=== PATIENT | female | born 1950 | race Caucasian/White ===

== ENCOUNTER 2018-10-27 10:25 | Inpatient (IN) | payer SELFPAY ==
[2018-10-27] VITALS (8 sets, daily range): BP systolic 106–133; BP diastolic 70–90; PULSE 80–107; RESP 14–18; TEMP 36–36.7; O2SAT 97–100; BMI 24.9; BMI 23.3; BMI 22.3
--- NOTE | 2018-10-27 10:34 | ED.VIS.GEN ---
History of Present Illness Chief Complaint: Fall Informant: Patient Onset: Today Context: Sudden Onset Timing: Continuous Current Severity: Moderate Maximum Severity: Severe Narrative: The patient presents to the emergency department by squad. Patient had a mechanical fall. She slipped on wet grass today. She landed on her left hip. She did not strike her head. She denies loss of consciousness. The patient has had a prior left hip replacement. Squad did note shortening and rotation. She is complaining of a lot of pain into her buttocks. She was unable to stand and bear weight. She basically had to drag herself up to the deck with her arms. She did not strike her head. She denies loss of consciousness. She is otherwise been in her normal state of health. Prior similar symptoms: No Recent Illness/Hospitalization: No Past Medical History - Allergies and Home Meds Allergies/Adverse Reactions: Allergies No Known Allergies Allergy (Verified 10/27/18 10:29) Prior records reviewed: Yes Past Medical History: None Surgical History: arthscropcy, hip Lives: With Family Smoking Status: Never smoker Alcohol: None Drugs: None Review of Systems General: Denies: Chills, Fever, Sweats Eyes: Denies: Visual changes - bilaterally, Diplopia ENT: Denies: Rhinorrhea, Sore throat Cardiovascular: Denies: Chest pain, Palpitations Respiratory: Denies: Dyspnea, Cough, Dyspnea on exertion Gastrointestinal: Denies: Abdominal pain, Nausea, Vomiting, Diarrhea, Melena, Hematochezia Genitourinary: Denies: Dysuria, Hematuria, Frequency Musculoskeletal: Denies: Back pain, Extremity Pain Skin: Denies: Rash, Wounds Neurological: Denies: Headache, Weakness, Numbness Physical Exam Vital Signs/Narrative: Vital Signs Temp Pulse Resp BP Pulse Ox 10/27/18 10:26 98.0 F 101 H 18 118/70 100 Inital Vital Signs reviewed: Yes General: Well nourished, Well developed, No Acute Distress Head: Normocephalic, Atraumatic Eyes: Perrl, EOMI ENT: Moist mucous membranes, No rhinorrhea Neck: Supple, Nontender Cardiovascular: Regular rate, Regular rhythm, No murmurs Respiratory: No distress, CTA bilaterally, Chest nontender Abdomen: Soft, Nontender, Nondistended, Normal bowel sounds Back: Nontender, Normal Inspection Extremities: Nontender, No edema Skin: Normal color, No rash Neurological: Alert, Oriented x3, Cranial nerves II-XII grossly intact, Normal Strength, Normal Sensation Psychological: Normal affect, Normal Mood Diagnostic/Tx/Re-eval Chest X-Ray - ED: 1 View, Normal, Heart, Lungs Clinical Impression(s) from Imaging Studies Hip X-Ray 10/27/18 11:00 IMPRESSION: Nondisplaced transverse fracture at the base of the left femoral neck with mild cephalic migration of the distal fracture fragment. Electronically Signed: Devon Jac, at 11:15 EDT , Service support , Chest X-Ray 10/27/18 11:10 IMPRESSION: Volume loss with pleural parenchymal changes at the right lung base. The patient has a history of recent right lung surgery. This may represent postoperative changes. Electronically Signed: Devon Nathan, at 12:24 EDT , Service support , Abnormal Lab Results 10/27/18 10/27/18 10:30 10:30 WBC 4.6 RBC 4.10 L Hgb 12.1 Hct 37.9 MCV 92.4 MCH 29.5 MCHC 31.9 L RDW Std Deviation 51.1 H RDW Coeff of Nan 15.0 H Plt Count 230 MPV 9.4 Immature Gran % (Auto) 0.600 Neut % (Auto) 71.3 H Lymph % (Auto) 14.9 L [place] % (Auto) 11.3 H Eos % (Auto) 1.7 Baso % (Auto) 0.2 Absolute Neuts (auto) 3.3 Absolute Lymphs (auto) 0.69 L Nucleated RBC % 0 Sodium 139 Potassium 3.9 Chloride 108 H Carbon Dioxide 23.0 Anion Gap 8 BUN 17 Creatinine 0.84 Estim Creat Clear Calc 47.70 Est GFR (MDRD) Af Amer 87 Est GFR (MDRD) Non-Af 72 BUN/Creatinine Ratio 20.3 H Glucose 145 H Calcium 9.1 Total Bilirubin 0.30 AST 26 ALT 23 Alkaline Phosphatase 144 H Total Protein 7.9 Albumin 3.1 L Globulin 4.8 H Albumin/Globulin Ratio 0.6 L - Rhythm Strip Rhythm Strip: Sinus Rhythm Rate: 70 Ectopy: None - EKG Follow-up EKG Interpretation: Sinus Rhythm, No Acute Injury Pattern Prior: No Prior - Medical Decision Making The the patient presents to the emergency department after a fall. She is neurologically intact in her lower extremity. There is no open skin areas. She was given analgesics with improvement. X-ray does confirm a basicervical fracture. The patient discussed with orthopedics. She will be taken for operative reduction and will be admitted to the hospitalist. 1. Left femoral neck fracture
[2018-10-27] MEDS: Morphine 4 MG/ML Syringe IV (10:35)
[2018-10-27] MEDS: Ondansetron 4 MG/2 ML Vial IV (10:36)
--- NOTE | 2018-10-27 11:00 | RAD_ITS ---
STUDY: X-RAY - PELVIS AND LEFT HIP REASON FOR EXAM: Female, 68 years old. Pain following a fall. TECHNIQUE: 3 views of the pelvis and hip. COMPARISON: None. FINDINGS: There is evidence of a nondisplaced transverse fracture at the base of the left femoral neck. Mild cephalic migration of the distal fracture fragment. Status post right total hip replacement. RAD/Hip Min 2 Views (Portable) IMPRESSION: Nondisplaced transverse fracture at the base of the left femoral neck with mild cephalic migration of the distal fracture fragment. Electronically Signed: Devon Nathan, at 11:15 EDT , Service support ,
--- NOTE | 2018-10-27 11:05 | EKG12_ITS ---
Test Reason : FALL Blood Pressure : / mmHG Vent. Rate : 088 BPM Atrial Rate : 088 BPM P-R Int : 156 ms QRS Dur : 082 ms QT Int : 368 ms P-R-T Axes : 060 034 041 degrees QTc Int : 445 ms Normal sinus rhythm Normal ECG Confirmed by LEEANNA STEEL ([id number]), pictures editor JJ PAVON ([id number]) on 10/29/2018 1:57:27 PM Referred By: Adam Veliz Confirmed By:LEEANNA STEEL
--- NOTE | 2018-10-27 11:07 | NURSING ---
NO OLD EKGS
--- NOTE | 2018-10-27 11:08 | NURSING ---
DR TUBBS PAGED
[2018-10-27 11:10] LABS: Absolute Lymphocyte Count 0.69 X10^3/uL (0.83-4.51); Absolute Neutrophil Count 3.3 X10^3/uL (2.0-7.7); Basophil# 0.01 X10^3/uL; Basophil% 0.2 % (0-1); Eosinophil# 0.08 X10^3/uL; Eosinophils% 1.7 % (0-5); Hematocrit 37.9 % (37-47); Hemoglobin 12.1 g/dL (12.0-15.0); Lymphocyte # 0.69 X10^3/ul (4.0); Lymphocyte % 14.9 % (19-41); Mean Corp Hgb Conc 31.9 g/dL (32-36); Mean Corpuscular Hgb 29.5 pg (27.0-32.0); Mean Corpuscular Volume 92.4 fL (81-99); Mean Platelet Vol. 9.4 fl (6.2-12.0); Monocyte# 0.52 X10^3/uL; Monocyte% 11.3 % (0-10); NRBC Flagged by Analyzer 0 % (0-5); Neutrophil # 3.29 X10^3/uL (2.7-7.7); Neutrophil % 71.3 % (47-70); Platelet Count 230 K/mm3 (150-450); RBC Distribution Width SD 51.1 fl (35.1-43.9); White Blood Count 4.6 K/mm3 (4.4-11.0)
--- NOTE | 2018-10-27 11:10 | RAD_ITS ---
STUDY: X-RAY CHEST REASON FOR EXAM: Female, 68 years old. History of fall. Cough. History of recent right lung surgery due to carcinoma. TECHNIQUE: Single AP portable view of the chest. COMPARISON: None. FINDINGS: Loss of volume in the right hemithorax. Pleural parenchymal changes at the right lung base most likely postoperative in nature. The left lung is clear. Normal size heart. Normal mediastinum and elias. Normal visualized pulmonary arteries. Normal visualized aortic arch and descending thoracic aorta. There are diffuse degenerative changes of the visualized thoracic spine. Calcific tendinitis in the left shoulder. There is no demonstrated abnormality of the visualized soft tissue structures of the upper abdomen. RAD/Chest 1 View (Portable) IMPRESSION: Volume loss with pleural parenchymal changes at the right lung base. The patient has a history of recent right lung surgery. This may represent postoperative changes. Electronically Signed: Devon Nathan, at 12:24 EDT , Service support ,
[2018-10-27 11:24] LABS: ALB/GLOB Ratio 0.6 RATIO (0.9-2.4); AST(SGOT) 26 U/L (15-37); Alanine Aminotransfer ALT/SGPT 23 U/L (13-56); Albumin, Serum 3.1 g/dL (3.2-5.0); Alkaline Phosphatase 144 U/L (45-117); Anion Gap 8 (5-15); BUN 17 mg/dL (7-18); BUN/Creat Ratio 20.3 RATIO (10-20); Calcium,Total 9.1 mg/dL (8.5-10.1); Chloride 108 mmol/L (98-107); Creatinine, Serum 0.84 mg/dL (0.55-1.02); EST Glomerular Filtration Rate 72 mL/min (>60); Est Glom Filt Rate - Afr Amer 87 mL/min (>60); Globulin 4.8 g/dL (2.2-4.2); Glucose 145 mg/dL (74-106); Potassium 3.9 mmol/L (3.5-5.1); Protein, Total 7.9 g/dL (6.4-8.2); Sodium Level 139 mmol/L (136-145)
--- NOTE | 2018-10-27 12:00 | NURSING ---
MED SURG HIP FX PAINTSIL
--- NOTE | 2018-10-27 12:01 | PCM.HP.STD ---
Problem List (1) Hip fracture, left Status: Acute History of Present Illness Date of Admission: 10/27/18 Chief Complaint: Fall, left hip pain - today The patient is a 68 year old F with PMHx of lung CA s/p right lobectomy in June 2018, s/p chemotherapy, history of endometrial CA status post DEBRA and BSO 7 years ago who comes in after a mechanical fall with hip pain. Patient is visiting the son and tripped over the dog leash in his son's backyard. She fell and has subsequently left hip pain. She denied any dizziness or palpitation or feeling unwell prior to this event. She is unable to move the left hip. The EMS was called. She had pain when she moves. Denied any chest pain or orthopnea or PND or shortness of breath or fever or chills or diarrhea. Vitals in the ED show temperature 98F, heart rate 101, blood pressure 118/70, respiratory rate 18, SPO2 100% on room air. Her WBC count is 4.6, hemoglobin 12.1, platelet count 230, CMP was unremarkable. Chest x-ray showed right hemithoracic volume loss with pleural parenchyma changes at the lung base from history of surgery. X-ray of the hip showed nondisplaced transverse fracture at the base of the left femoral neck with mild cephalic migration of the distal fracture fragment. EKG shows NSR, no acute ST-T changes. 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: endometrial cancer Lives: With Family Smoking Status: Former smoker Alcohol: None Drugs: None Review of Systems Constitutional: Denies: Anorexia, Chills, Fever, Weakness, Weight Change, Fatigue Eyes: Denies: Blurred vision, Pain, Redness, Vision Change HEENT: Denies: Head Aches, Hearing Changes, Nasal bleeding, Sinus Congestion, Sinus Drainage Cardiovascular: Denies: Chest Pain, Claudication, Orthopnea, Palpitations Respiratory: Denies: Cough, Hemoptysis, Shortness of breath at rest, Shortness of breath upon exertion, Sputum production Gastrointestinal: Denies: Abdominal Pain, Hematemesis, Hematochezia, Nausea, Vomiting Genitourinary: Denies: Dysuria, Frequency, Incontinence Musculoskeletal: Reports: Joint Tenderness, Muscle pain. Denies: Joint Pain, Joint stiffness Skin: Denies: Dryness, Lesions, Pruritis, Rash, Wounds Neurological: Denies: Difficulty swallowing, Focal weakness, Numbness, Tingling Psychiatric: Denies: Anxiety, Depression, Homicidal Ideations, Suicidal Ideations Hematologic/ Lymphatic: Denies: Easy Bruising, Easy Bleeding VTE Information - Inpt Only VTE Present on Admission: No VTE Pharm Prophylaxis ordered?: Yes Patient Problems: Active and Suspected Problems Hip fracture, left (Acute) - Physical Exam General: Alert, Oriented x3, Cooperative, No apparent distress HEENT: Atraumatic, PERRLA, EOMI, Normocephalic Oral: Moist Mucosa Neck: Supple Lungs: Clear to auscultation, Normal air movement Cardiovascular: Regular rate, Regular Rhythm, Normal S1, Normal S2, No murmurs Abdomen: Bowel Sounds Present, Soft, Non Tender, Non-Distended, No Hepato-splenomegaly Extremities: No edema Skin: No rashes, No breakdown Musculoskeletal: Tenderness - over the left hip with shortening and external rotation of the left leg Lymphatic: No Cervical, Supraclavicular, or Inguinal Adenopathy Neurological: Cranial nerves II-XII grossly intact Psych/Mental Status: Normal Affect, Appropriate Vital Signs Temp Pulse Resp BP Pulse Ox 98.0 F 101 H 18 118/70 100 10/27/18 10:26 10/27/18 10:26 10/27/18 10:26 10/27/18 10:26 10/27/18 10:26 Oxygen Delivery Method Room Air Weight: 59.9 kg Body Mass Index (BMI) 24.9 Laboratory Tests Past 24 Hrs 10/27/18 10/27/18 10:30 10:30 WBC 4.6 RBC 4.10 L Hgb 12.1 Hct 37.9 MCV 92.4 MCH 29.5 MCHC 31.9 L RDW Std Deviation 51.1 H RDW Coeff of Nan 15.0 H Plt Count 230 MPV 9.4 Immature Gran % (Auto) 0.600 Neut % (Auto) 71.3 H Lymph % (Auto) 14.9 L [place] % (Auto) 11.3 H Eos % (Auto) 1.7 Baso % (Auto) 0.2 Absolute Neuts (auto) 3.3 Absolute Lymphs (auto) 0.69 L Nucleated RBC % 0 Sodium 139 Potassium 3.9 Chloride 108 H Carbon Dioxide 23.0 Anion Gap 8 BUN 17 Creatinine 0.84 Estim Creat Clear Calc 47.70 Est GFR (MDRD) Af Amer 87 Est GFR (MDRD) Non-Af 72 BUN/Creatinine Ratio 20.3 H Glucose 145 H Calcium 9.1 Total Bilirubin 0.30 AST 26 ALT 23 Alkaline Phosphatase 144 H Total Protein 7.9 Albumin 3.1 L Globulin 4.8 H Albumin/Globulin Ratio 0.6 L Assessment/Plan All Active Problems Hip fracture, left (Acute) 68 year old female with PMHx of lung CA s/p right lobectomy in June 2018, s/p chemotherapy, history of endometrial CA status post DEBRA/BSO 7 years ago who comes in after a mechanical fall with hip pain. 1. Acute left femoral neck fracture, traumatic secondary to mechanical fall, patient's pain is fairly controlled Stable vitals. No acute current cardiac symptoms. EKG shows normal sinus rhythm, no acute ST-T changes Chest x-ray shows recent lobectomy; not on oxygen Patient is moderate risk for planned procedure for pulmonary reasons on account of recent lobectomy Orthopedic surgery consulted, will follow-up on recommendations, continue on pain control, PT/OT to evaluate 2. H/o Lung CA s/p recent right lobectomy and chemotherapy, will be followed up in the outpatient 3. H/o Endometrial CA s/p hysterectomy and radiotherapy to pelvis, will need 4. DVT PPx- Heparin SC Code Visit Inpatient E&M: 81764 Init Hosp L2
--- NOTE | 2018-10-27 12:18 | NURSING ---
DR SEALS IN ER
--- NOTE | 2018-10-27 12:18 | NURSING ---
PER CHARGE NURSE IN OR, PATIENT IS GOING TO SURGERY IN NEXT HALF HOUR
[2018-10-27] MEDS: 0.9% Normal Saline 1,000 ML 75 ML IV (13:18)
--- NOTE | 2018-10-27 14:00 | HIP_PTH ---
PATIENT: MARK CAMARILLO LOC: MS3 U#:[id number] AGE/SX: 68/F ROOM: MS318 RE10/27/[address]: Dr. Adam Veliz DO : 1950 BED: 1 DIS: 10/29/2018 SPEC #: [id number] RECD: 10/28/18 09:45 STATUS: JEFFERSON RELianna #: [id number] LUIGI: 10/27/18 14:[address]: Adam Veliz DEPT: SURGICAL PATHOLOGY RECD BY: Tamar Robin ENTERED: 10/28/18 11:26 SP TYPE: TOTAL HIP OTHR DR: No Primary Care Phys Tissues: Hip, NOS Procedures: Decalcification bone/plaque Surgery Specimen Level IV HEADER OPERATION: Hemiarthroplasty, hip PRE-OP DIAGNOSIS: Left hip fracture TISSUE SUBMITTED: Left femoral head MICROSCOPIC DIAGNOSIS Left femoral head, hemiarthroplasty: Femoral head and detached pieces of bone with focal area of hemorrhage, clinically left hip fracture. Fragments of fibroadipose tissue, fibroconnective tissue and skeletal muscle tissue. JANNA:camilla 11/02/18 MICROSCOPIC DESCRIPTION Slides are reviewed. GROSS DESCRIPTION Received is one container designated left femoral head. The specimen consists of a femoral head measuring 4.5 x 4.5 x 3 cm. The portion of femoral neck measures 1.5 cm in length. The articular surface is smooth. The resection margin is hemorrhagic. Also present in the container are multiple detached pieces of bone measuring in aggregate 8 x 6 x 2 cm. Also present in the container are multiple pieces of soft tissue measuring in aggregate 3 x 3 x 1 cm. Maintenance Engineer sections are submitted in three cassettes as follows: 1 - soft tissue, 2 - detached pieces of bone, 3 - femoral head; 2 & 3 are submitted after decalcification. / JANNA:camilla 10/28/18 TC:5 CPT: 15627, 96401
--- NOTE | 2018-10-27 15:01 | PCM.CONS.GEN ---
Problem List (1) Hip fracture, left Status: Acute Qualifiers: Encounter type: initial encounter Fracture type: closed Qualified Code(s): S72.002A - Fracture of unspecified part of neck of left femur, initial encounter for closed fracture Reason for Consult Date of Consultation: 10/27/18 Reason for Consultation: Displaced femoral neck fracture of left hip History of Present Illness: The patient is a 68 year old F who is here on vacation visiting from [place] when she was outside and tripped over the family dog (or the leash) and fell landing on her hip. She had immediate pain on the outside of her hip and in the groin. She was unable to get up following the fall. She was then taken to the ED where images revealed femoral neck fracture. She denies any numbness or tingling in the extremity and has normal gross motor function of her ankle, foot, and toes. 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 She does have pain with any movements of the hip. 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 Objective: Patient lying supine in the bed for exam. She does not appear in distress. No evident skin changes. She has tenderness on palpation of the lateral hip. Hip is in slight external rotation and she has pains with any movements of the hip. She has normal sensation in the foot and toes and normal motor function as well. She has normal distal pulses. No calf tenderness. - Physical Exam General: Alert, Oriented x3, Cooperative, No apparent distress, Well developed, Well nourished Oral: Moist Mucosa Extremities: No edema, No Calf Tenderness, Peripheral Pulses Normal, Tenderness Skin: No breakdown Musculoskeletal: Tenderness - left lateral hip, - - Hip is in slight external rotation with knee slightly flexed Psych/Mental Status: Normal Affect Vital Signs Temp Pulse Resp BP Pulse Ox 98.0 F 94 17 118/72 100 10/27/18 12:53 10/27/18 12:53 10/27/18 12:53 10/27/18 12:53 10/27/18 12:53 Oxygen Delivery Method Room Air Weight: 132 lb 0.91 oz Body Mass Index (BMI) 23.3 Intake and Output for Last 24 Hours 10/25/18 10/26/18 10/27/18 23:59 23:59 23:59 Output Total 350 / 350 Balance -350 / -350 Laboratory Tests Past 24 Hrs 10/27/18 10/27/18 10/27/18 10:30 10:30 12:35 WBC 4.6 RBC 4.10 L Hgb 12.1 Hct 37.9 MCV 92.4 MCH 29.5 MCHC 31.9 L RDW Std Deviation 51.1 H RDW Coeff of Nan 15.0 H Plt Count 230 MPV 9.4 Immature Gran % (Auto) 0.600 Neut % (Auto) 71.3 H Lymph % (Auto) 14.9 L [place] % (Auto) 11.3 H Eos % (Auto) 1.7 Baso % (Auto) 0.2 Absolute Neuts (auto) 3.3 Absolute Lymphs (auto) 0.69 L Nucleated RBC % 0 Sodium 139 Potassium 3.9 Chloride 108 H Carbon Dioxide 23.0 Anion Gap 8 BUN 17 Creatinine 0.84 Estim Creat Clear Calc 47.70 Est GFR (MDRD) Af Amer 87 Est GFR (MDRD) Non-Af 72 BUN/Creatinine Ratio 20.3 H Glucose 145 H Calcium 9.1 Total Bilirubin 0.30 AST 26 ALT 23 Alkaline Phosphatase 144 H Total Protein 7.9 Albumin 3.1 L Globulin 4.8 H Albumin/Globulin Ratio 0.6 L Blood Type O POSITIVE Antibody Screen NEGATIVE Assessment/Plan All Active Problems Hip fracture, left (Acute) Patient presents to the hospital for left hip pain post fall Radiographs show displaced femoral neck fracture Discussed with patient and her son that surgery is warranted at this time Plan is to take her to OR this afternoon for left hip hemiarthroplasty
[2018-10-27] MEDS: Cefazolin 2 GM in 0.9% Normal Saline 100 ML IV ×2 (15:25→23:09)
[2018-10-27] MEDS: Lactated Ringers 1,000 ML 100 ML IV ×2 (16:30→20:41)
--- NOTE | 2018-10-27 17:07 | OP.PCM_ITS ---
Report of Operation Date of Procedure: 10/27/18 Description of Surgical Findings:: Preoperative diagnosis: Left hip femoral neck fracture displaced Postoperative diagnosis: Same Procedure: Left hip hemiarthroplasty Implants: [place] Accolade II stem size 2 132 degree neck angle 0 neck length Anesthesia: General l Specimen: left hip EBL: 150 cc Complications: None Condition: Stable to PACU Indication for procedure: This is a 68-year-old female patient who had a ground- level fall over her dog leash who sustained a displaced left femoral neck fracture. plans for definitive hemiarthroplasty were discussed including risks benefits and alternatives of the procedure were reviewed with the patient including risk of bleeding infection nerve artery tissue damage need for further surgery continue pain postoperative hip precaution restrictions leg length discrepancy and dislocation. 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 She also has history of lung cancer Procedure: Patient was met in the preoperative holding area once again the operative extremity was identified by both patient and physician and was marked. Patient was met by anesthesia and brought to the operating room where anesthesia was started . The patient was then positioned in the lateral decubitus position on a well-padded pegboard with an axillary roll. All bony prominences were checked and padded. The patient was prepped and draped in the usual sterile fashion. A timeout was called to ensure the proper patient procedure and extremity were being contemplated. Anatomic landmarks were palpated and marked for a standard posterior lateral approach. A timeout was called to ensure the proper patient procedure and extremity were being contemplated. A 10 blade scalpel was used to make a posterior incision through the skin and subcutaneous tissue. In retractors were used and electrocautery was used to maintain meticulous hemostasis and dissect full-thickness flaps until the gluteal fascia was reached. The gluteal fascia was incised in line with the gluteal fibers. The bursal tissue was then freed from the underside and a Charnley retractor was placed. The fatpad was elevated off of the external rotators with electrocautery and the external rotators were dissected off of the greater trochanter including the piriformis and were tagged with #1 Ethibond for later repair. The joint capsule opened with posterior trapdoor technique. A femoral neck cutting guide was used to yamil the neck with a Bovie and an oscillating saw was used to complete the femoral neck cut. the fracture was visualized and with the use of a corkscrew and a skid the femoral head was removed and sized. We then trialed with the matching sizes . Hohmann was placed around the lesser trochanter. A femoral elevator was used. As well as a pointed wide Hohmann around the lesser trochanter and a Hohmann to help retract the gluteus medius. A box chisel was used to remove excess lateral neck followed by a canal finder and a lateralizing reamer. This was followed by sequential broaches. Attention was made of the version within the canal. Once the final broach was seated we then trialed and reduced the hip it was determined that a 132 degree neck angle with a 0 neck length was the appropriate size. We then checked stability with shuck testing as well as flexion and interminal rotation then proceeded with hip extension and checked leg lengths at the knees and heels. At this point trials were removed. The femoral stem was inserted. We re-trialed and then proceeded to impact the femoral head onto the Ashwin taper. We then surgically reduce the hip check stability again and leg lengths and were satisfied. irricept rinse was allowed to sit for 1 minutes while everyone changed their gloves. Thorough irrigation was performed. Followed by closure of the external rotators with #2 FiberWire followed by closure of gluteal fascia with #1 Ethibond. 0 Vicryl fat stitches and 2-0 Vicryl subcutaneous stitches and cynthia in the skin. Dressing was applied in the form of silverlon dressing and an abduction pillow was placed. Patient tolerated the procedure well there was no intraoperative complications all counts were correct and the patient was brought back to the PACU in stable condition
--- NOTE | 2018-10-27 17:35 | RAD_ITS ---
STUDY: X-RAY - PELVIS AND LEFT HIP REASON FOR EXAM: Female, 68 years old. Postoperative from left hip replacement TECHNIQUE: 2 views of the pelvis and hip. COMPARISON: None. FINDINGS: Status post left hip replacement. No evidence of hardware failure or loosening. No acute fracture or dislocation. Expected postoperative soft tissue changes. Right hip arthroplasty is noted. RAD/Hip Min 2 Views (Portable) IMPRESSION: As above Electronically Signed: Juan Callaway DO at 18:00 EDT Tel , Service support ,
[2018-10-27] MEDS: 0.9% NaCl Peripheral Flush Adult/Peds IV (18:59)
[2018-10-27] MEDS: HYDROmorphone 1 MG/ML Syringe 0.5 MG IV (18:59)
[2018-10-27] MEDS: APIXABAN 2.5 MG TABLET PO (20:59)
[2018-10-27] MEDS: Senna/Docusate Sodium 1 Tablet 2 TABLET PO (20:59)
[2018-10-27] MEDS: Acetaminophen 500 MG Tablet 1000 MG PO (20:59)
[2018-10-27] MEDS: Mag Hydrox/Al Hydrox/Simeth 30 ML UDC PO (23:05)
[2018-10-28] MEDS: oxyCODONE 5 MG Tablet PO ×2 (02:39→09:44)
[2018-10-28 02:40] VITALS: BP 109/66; PULSE 70; RESP 16; TEMP 36.8; O2SAT 99
[2018-10-28] MEDS: Acetaminophen 500 MG Tablet 1000 MG PO ×3 (05:33→21:09)
[2018-10-28 06:36] LABS: Absolute Lymphocyte Count 0.32 X10^3/uL (0.83-4.51); Absolute Neutrophil Count 5.8 X10^3/uL (2.0-7.7); Basophil# 0.01 X10^3/uL; Basophil% 0.1 % (0-1); Hematocrit 35.2 % (37-47); Lymphocyte # 0.32 X10^3/ul (4.0); Lymphocyte % 4.8 % (19-41); Mean Corp Hgb Conc 31.3 g/dL (32-36); Mean Corpuscular Hgb 29.6 pg (27.0-32.0); Mean Corpuscular Volume 94.9 fL (81-99); Mean Platelet Vol. 9.6 fl (6.2-12.0); Monocyte# 0.57 X10^3/uL; Monocyte% 8.5 % (0-10); NRBC Flagged by Analyzer 0 % (0-5); Neutrophil # 5.78 X10^3/uL (2.7-7.7); Neutrophil % 86.2 % (47-70); POSITIVE DIFFERENTIAL YES; POSITIVE MORPHOLOGY YES; Platelet Count 220 K/mm3 (150-450); RBC Distribution Width CV 14.8 % (11.6-14.6); RBC Distribution Width SD 51.8 fl (35.1-43.9); Red Blood Count 3.71 M/mm3 (4.2-5.4); White Blood Count 6.7 K/mm3 (4.4-11.0)
[2018-10-28 07:01] LABS: Anion Gap 9 (5-15); BUN 12 mg/dL (7-18); BUN/Creat Ratio 14.5 RATIO (10-20); Calcium,Total 8.6 mg/dL (8.5-10.1); Chloride 106 mmol/L (98-107); Creatinine, Serum 0.83 mg/dL (0.55-1.02); EST Glomerular Filtration Rate 73 mL/min (>60); Est Glom Filt Rate - Afr Amer 88 mL/min (>60); Estimated Creatinine Clearance 50.59 ml/min; Glucose 115 mg/dL (74-106); Potassium 4.4 mmol/L (3.5-5.1); Sodium Level 141 mmol/L (136-145)
[2018-10-28] MEDS: Cefazolin 2 GM in 0.9% Normal Saline 100 ML IV (07:07)
[2018-10-28 07:14] LABS: Differential Indicated SCAN CRITERIA MET
--- NOTE | 2018-10-28 09:04 | PCM.PN.HOSP ---
Patient Problems: Active and Suspected Problems Hip fracture, left (Acute) Subjective: Patient was seen and examined. Her pain is fairly controlled about 4 out of 10. Denies any fever or chills or breathing problems. Objective: Physical Exam General: Alert, Oriented x3, Cooperative, No apparent distress, sitting up in the chair HEENT: Atraumatic, PERRLA, EOMI, Normocephalic Oral: Moist Mucosa Neck: Supple Lungs: Clear to auscultation, Normal air movement Cardiovascular: Regular rate, Regular Rhythm, Normal S1, Normal S2, No murmurs Abdomen: Bowel Sounds Present, Soft, Non Tender, Non-Distended, No Hepato-splenomegaly Extremities: No edema Skin: No rashes, No breakdown Musculoskeletal: Tenderness of the left hip, dressing in place, ice pack in place. Lymphatic: No Cervical, Supraclavicular, or Inguinal Adenopathy Neurological: Cranial nerves II-XII grossly intact Psych/Mental Status: Normal Affect, Appropriate Vitals/I&O's: Vital Signs Temp Pulse Resp BP Pulse Ox 98.2 F 70 16 109/66 99 10/28/18 02:40 10/28/18 02:40 10/28/18 02:40 10/28/18 02:40 10/28/18 02:40 Oxygen Delivery Method Room Air Weight: 57.178 kg Body Mass Index (BMI) 22.3 Intake and Output for Last 24 Hours 10/26/18 10/27/18 10/28/18 23:59 23:59 23:59 Intake Total 3645.00 / 4235.00 1395.33 / 1395.33 Output Total 350 / 950 600 / 600 Balance 3295.00 / 3285.00 795.33 / 795.33 Laboratory Results 10/27/18 10:30: WBC 4.6, RBC 4.10 L, Hgb 12.1, Hct 37.9, MCV 92.4, MCH 29.5, MCHC 31.9 L, RDW Std Deviation 51.1 H, RDW Coeff of Nan 15.0 H, Plt Count 230, MPV 9.4, Immature Gran % (Auto) 0.600, Neut % (Auto) 71.3 H, Lymph % (Auto) 14.9 L, [place] % (Auto) 11.3 H, Eos % (Auto) 1.7, Baso % (Auto) 0.2, Absolute Neuts (auto) 3.3, Absolute Lymphs (auto) 0.69 L, Nucleated RBC % 0 10/27/18 10:30: Sodium 139, Potassium 3.9, Chloride 108 H, Carbon Dioxide 23.0, Anion Gap 8, BUN 17, Creatinine 0.84, Estim Creat Clear Calc 47.70, Est GFR (MDRD) Af Amer 87, Est GFR (MDRD) Non-Af 72, BUN/Creatinine Ratio 20.3 H, Glucose 145 H, Calcium 9.1, Total Bilirubin 0.30, AST 26, ALT 23, Alkaline Phosphatase 144 H, Total Protein 7.9, Albumin 3.1 L, Globulin 4.8 H, Albumin/Globulin Ratio 0.6 L 10/27/18 12:35: Blood Type O POSITIVE, Antibody Screen NEGATIVE 10/28/18 06:08: WBC 6.7, RBC 3.71 L, Hgb 11.0 L, Hct 35.2 L, MCV 94.9, MCH 29.6, MCHC 31.3 L, RDW Std Deviation 51.8 H, RDW Coeff of Nan 14.8 H, Plt Count 220, MPV 9.6, Immature Gran % (Auto) 0.400, Neut % (Auto) 86.2 H, Lymph % (Auto) 4.8 L, [place] % (Auto) 8.5, Eos % (Auto) 0.0, Baso % (Auto) 0.1, Absolute Neuts (auto) 5.8, Absolute Lymphs (auto) 0.32 L, Nucleated RBC % 0 10/28/18 06:08: Sodium 141, Potassium 4.4, Chloride 106, Carbon Dioxide 26.0, Anion Gap 9, BUN 12, Creatinine 0.83, Estim Creat Clear Calc 50.59, Est GFR (MDRD) Af Amer 88, Est GFR (MDRD) Non-Af 73, BUN/Creatinine Ratio 14.5, Glucose 115 H, Calcium 8.6 Current Medications Acetaminophen (Tylenol) 1,000 mg PO Q8 NEO Last Admin: 10/28/18 05:33 Dose: 1,000 mg Documented by: Al Hydroxide/Mg Hydroxide (Mylanta Ii) 30 ml PO Q6H PRN PRN PRN Reason: Gastric Burning Last Admin: 10/27/18 23:05 Dose: 30 ml Documented by: Albuterol Sulfate (Ventolin Aerosols) 2.5 mg INHALATION Q2H PRN PRN PRN Reason: Shortness of Breath/Wheezing Apixaban (Eliquis) 2.5 mg PO BID [facility] Last Admin: 10/27/18 20:59 Dose: 2.5 mg Documented by: Hydromorphone HCl (Dilaudid Inj) 0.5 mg IV Q2H PRN PRN PRN Reason: BREAKTHROUGH PAIN (>4/10) Last Admin: 10/27/18 18:59 Dose: 0.5 mg Documented by: Melatonin (Melatonin) 3 mg PO QHS PRN PRN PRN Reason: INSOMNIA Ondansetron HCl (Zofran) 4 mg IV Q6H PRN PRN PRN Reason: NAUSEA Oxycodone HCl (Oxyir) 5 - 10 mg PO Q4H PRN PRN PRN Reason: MOD-SEVERE PAIN (4-10/10) Last Admin: 10/28/18 02:39 Dose: 5 mg Documented by: Senna/Docusate Sodium (Senokot-S, Lyndsay-Colace) 2 tablet PO BID [facility] Last Admin: 10/27/18 20:59 Dose: 2 tablet Documented by: Sodium Chloride () 10 - 40 ml IV UD PRN PRN Reason: SALINE FLUSH Last Admin: 10/27/18 18:59 Dose: 10 ml Documented by: Medical Necessity - Tobacco Use Smoking Status: Former smoker - quit over 20 years ago Assessment/Plan All Active Problems Hip fracture, left (Acute) 68 year old female with PMHx of lung CA s/p right lobectomy in June 2018, s/p chemotherapy, history of endometrial CA status post DEBRA/BSO 7 years ago who comes in after a mechanical fall with hip pain. 1. POD #1, s/p left hemiarthroplasty for acute left femoral neck fracture, traumatic secondary to mechanical fall, Pain is controlled, continue scheduled Tylenol, PRN oxycodone and morphine Continue with PT and OT evaluations 2. H/o Lung CA s/p recent right lobectomy and chemotherapy, will be followed up in the outpatient 3. H/o Endometrial CA s/p hysterectomy and radiotherapy to pelvis, will need to follow-up in outpatient. 4. DVT PPx- Eliquis BID per orthopedics Code Visit Inpatient E&M: 53343 Subs Hosp L2
[2018-10-28 09:30] VITALS: BP 97/61; PULSE 85; RESP 16; TEMP 36.7; O2SAT 100
[2018-10-28] MEDS: Senna/Docusate Sodium 1 Tablet 2 TABLET PO ×2 (09:42→21:08)
[2018-10-28] MEDS: APIXABAN 2.5 MG TABLET PO ×2 (09:42→21:10)
--- NOTE | 2018-10-28 10:45 | CASEMGMT ---
HAZEL BAI Face to Face with patient for initial transition planning/care coordination assessment. RN RICHARDSON introduced self and role at [facility]. Patient lying in bed, alert and oriented. Patient willing to participate in assessment and is able to answer all questions appropriately. Care providers, pharmacy, and demographics verified. Patient is visiting son from [place], patient is unaware what plan is for discharge. Patient gave CM permission to call son regarding discharge planning and needs. RN RICHARDSON called sonPolo and will be coming in to speak with CM, therapy, and patient finnacial services at 3:30pm. CM to follow for discharge planning needs that may arise. Disposition Plan: TBD Sanjana RICE, RN, CM
--- NOTE | 2018-10-28 13:30 | CASEMGMT ---
Social Work Note Pt is listed as self-pay. HAZEL Lyon states pt is visiting from [place] and has insurance in [place] and was encouraged to call her insurance to determine if she has any coverage in the states. HAZEL Lyon spoke with pt's son who will be at [facility] around 3:30pm and would like to discuss discharge plans and payment plans. SW placed a call to [facility]. Anay is covering [facility] and is available to meet with pt around 3:30pm to discuss payment plans. Plan: Home. HAZEL Lyon, this worker, Anay with [facility] and PT/OT will meet with pt's son at 3:30pm to discuss discharge plans. Sanjana Willett SIDE PULLER, ESL PROFESSOR
[2018-10-28 15:30] VITALS: BP 100/62; PULSE 91; RESP 16; TEMP 36.9; O2SAT 98
--- NOTE | 2018-10-28 15:30 | CASEMGMT ---
RN CM in with patient, son PoloKWAKU, PT/OT, and patient financial services in patient's room to discuss discharge needs. RN RICHARDSON discussed home with HHC or outpatient therapy. RN RICHARDSON will come up with pricing list for HHC and outpatient therapy. PT/OT will review exercises family can complete at home. Patient financial services discussed package plan with patient and son. CM will continue to work with patient and family and follow for a safe discharge.
--- NOTE | 2018-10-28 16:28 | CASEMGMT ---
Social Work Note SW present in family meeting with pt's son Polo. Polo asked about pt going to SNF for about a week of rehab. KWAKU explained that going to SNF will be private pay and average private pay is $170-$250 and that is only the private pay rate for room and board and PT/OT, medications, doctor visits, etc will be an additional amount on top of room and board. Polo states pt will just go home. PT and OT feel pt is able to go home safely. Anay with [facility] provided package plan for pt. KWAKU explained that this worker is not able to provide any assistance with Package plan or bill from [facility]. Sanjana Willett SOYBEAN GROWER, AUTOMATIC STEEL TIE ADJUSTER
[2018-10-28 21:11] VITALS: BP 107/67; PULSE 96; RESP 18; TEMP 36.6; O2SAT 100
[2018-10-29 03:20] VITALS: BP 91/61; PULSE 94; RESP 16; TEMP 36.7; O2SAT 98
[2018-10-29] MEDS: oxyCODONE 5 MG Tablet PO (03:40)
[2018-10-29 05:47] LABS: Hemoglobin 9.9 g/dL (12.0-15.0); Mean Corp Hgb Conc 30.9 g/dL (32-36); Mean Corpuscular Hgb 29.4 pg (27.0-32.0); Mean Platelet Vol. 9.7 fl (6.2-12.0); Platelet Count 170 K/mm3 (150-450); RBC Distribution Width CV 15.2 % (11.6-14.6); RBC Distribution Width SD 52.5 fl (35.1-43.9); Red Blood Count 3.37 M/mm3 (4.2-5.4); White Blood Count 4.9 K/mm3 (4.4-11.0)
[2018-10-29] MEDS: Acetaminophen 500 MG Tablet 1000 MG PO ×2 (06:46→13:54)
--- NOTE | 2018-10-29 08:38 | PCM.PN.ORT ---
Patient Problems: Active and Suspected Problems Hip fracture, left (Acute) Subjective: Seen and examined complain of pain when standing comfortable sitting pain only lateral side of hip no groin pain. Otherwise no complaints - Physical Exam General: Alert, Oriented x3, No apparent distress Extremities: - - Examination unchanged from yesterday Vital Signs Temp Pulse Resp BP Pulse Ox 98.1 F 94 16 91/61 98 10/29/18 03:20 10/29/18 03:20 10/29/18 03:20 10/29/18 03:20 10/29/18 03:20 Oxygen Delivery Method Room Air Weight: 126 lb 0.91 oz Body Mass Index (BMI) 22.3 Intake and Output for Last 24 Hours 10/27/18 10/28/18 10/29/18 23:59 23:59 23:59 Intake Total 3645.00 / 4235.00 1395.33 / 1395.33 1146 / 1146 Output Total 350 / 950 600 / 600 800 / 800 Balance 3295.00 / 3285.00 795.33 / 795.33 346 / 346 Laboratory Tests Past 24 Hrs 10/29/18 05:10 WBC 4.9 RBC 3.37 L Hgb 9.9 L Hct 32.0 L MCV 95.0 MCH 29.4 MCHC 30.9 L RDW Std Deviation 52.5 H RDW Coeff of Nan 15.2 H Plt Count 170 MPV 9.7 Medical Necessity - Tobacco Use Smoking Status: Former smoker - quit over 20 years ago Assessment/Plan All Active Problems Hip fracture, left (Acute) PT OT weightbearing as tolerated discharge when medically stable. DVT prophylaxis in form of SCDs PILO hose and chemical prophylaxis currently on Eliqu patient family requesting alternative Would be okay with other form of medical prophylaxis 3 weeks post hospital discharge soon will contact me once family request as been given for my approval. Follow-up 2 weeks postop Hip precautions Dressing to be changed tomorrow prior to shower moved then replaced after shower, then daily May begin showering daily postop day #3 do not submerge
[2018-10-29 08:45] VITALS: BP 91/60; PULSE 96; RESP 16; TEMP 36.7; O2SAT 100
[2018-10-29] MEDS: APIXABAN 2.5 MG TABLET PO (08:47)
[2018-10-29] MEDS: Senna/Docusate Sodium 1 Tablet 2 TABLET PO (08:47)
--- NOTE | 2018-10-29 09:51 | PCM.DC ---
- Discharge Diagnoses Current Active Problems: Current Active and Chronic Problems Hip fracture, left (Acute) Reason(s) for Visit for Discharge Instructions: Left hip fracture You will use the following diet at home:: Regular Your food should be the consistency of: Regular Your liquids should be the consistency of: Regular/Thin Discharge Activity: Return to Normal Activity Weight Bearing Status: Weight bearing as tolerated Call your doctor if your incision/area has: Continuous Slow Oozing, Sudden Increased Bleeding, Increased Pain/ Swelling, Increased Redness, Foul Smelling Discharge, Swelling at the incision site Call your doctor if you observe: Fever of 101 or Higher, Coldness, Increased Pain, Numbness or Tingling, Change in Color Allergies/Adverse Reactions: Allergies No Known Allergies Allergy (Verified 10/27/18 10:29) Medications to take at Discharge Gabapentin [Neurontin] 300 mg PO QHS 10/27/18 Acetaminophen [Tylenol] 1,000 mg PO Q8 tablet 10/29/18 Apixaban [Eliquis] 2.5 mg PO BID 30 Days #60 tab 10/29/18 Oxycodone [Oxyir] 5 mg PO Q4H PRN PRN 5 Days #20 tablet 10/29/18 Senna/Docusate Sodium [Senokot-S] 2 tab PO BID 14 Days #30 tab 10/29/18 The following prescriptions were given: Apixaban [Eliquis] 2.5 mg PO BID 30 Days #60 tab Transmission Status: Pending to [facility] Oxycodone [Oxyir] 5 mg PO Q4H PRN PRN 5 Days #20 tablet PRN Reason: Mod-Severe Pain (4-10/10) Transmission Status: Sent to [facility] Senna/Docusate Sodium [Senokot-S] 2 tab PO BID 14 Days #30 tab Transmission Status: Pending to [facility] Primary Care Physician: Care Physician,No Primary [Primary Care Provider] - Test Results: Test results from this visit will be discussed in further detail at your follow-up appointment, if applicable. Please Follow Up With: Adam Veliz DO When: in 2 weeks Proposed Discharge Date: 10/29/18
--- NOTE | 2018-10-29 09:54 | DS.PCM_ITS ---
Discharge Date and Diagnosis Date of Admission: 10/27/18 Date of Discharge: 10/29/18 - Primary Discharge Diagnosis Active and Suspected Problems Hip fracture, left (Acute) - Secondary Discharge Diagnosis H/o Lung Ca s/p right lobectomy H/o endometrial CA s/p hysterectomy Hospital Course and Treatment Imaging Results: Clinical Impression(s) from Imaging Studies Hip X-Ray 10/27/18 11:00 IMPRESSION: Nondisplaced transverse fracture at the base of the left femoral neck with mild cephalic migration of the distal fracture fragment. Electronically Signed: Devon Nathan, at 11:15 EDT , Service support , Chest X-Ray 10/27/18 11:10 IMPRESSION: Volume loss with pleural parenchymal changes at the right lung base. The patient has a history of recent right lung surgery. This may represent postoperative changes. Electronically Signed: Devon Nathan, at 12:24 EDT , Service support , Hip X-Ray 10/27/18 17:35 IMPRESSION: As above Electronically Signed: Juan Callaway DO at 18:00 EDT Tel , Service support , Orthopedic surgery Operations: None Procedures: - - s/p left hip replacement Summary of Care Provided: 68 year old female with PMHx of lung CA s/p right lobectomy in June 2018, s/p chemotherapy, history of endometrial CA status post DEBRA/BSO 7 years ago who comes in after a mechanical fall with hip pain. Patient underwent left hip arthroplasty on 10/27/18. She did very well postoperatively. Her pain was controlled with scheduled Tylenol, PRN oxycodone. Patient was seen by the financial services, social work and case management. She was discharged on Eliquis for DVT prophylaxis. She was also discharged with home health and will follow-up with orthopedics in 2 weeks in the outpatient. Subjective: On the day of discharge, patient was seen and examined. Her pain is controlled. She is been ambulating with physical therapy. Also being ambulated by herself to the bathroom. Denies any fever or chills or dizziness. Objective: Physical Exam General: Alert, Oriented x3, Cooperative, No apparent distress, sitting up in the chair HEENT: Atraumatic, PERRLA, EOMI, Normocephalic Oral: Moist Mucosa Neck: Supple Lungs: Clear to auscultation, Normal air movement Cardiovascular: Regular rate, Regular Rhythm, Normal S1, Normal S2, No murmurs Abdomen: Bowel Sounds Present, Soft, Non Tender, Non-Distended, No Hepato- splenomegaly Extremities: No edema Skin: No rashes, No breakdown Musculoskeletal: Tenderness of the left hip, dressing in place, ice pack in place. Lymphatic: No Cervical, Supraclavicular, or Inguinal Adenopathy Neurological: Cranial nerves II-XII grossly intact Psych/Mental Status: Normal Affect, Appropriate - Physical Exam Vital Signs Temp Pulse Resp BP Pulse Ox 98.0 F 96 16 91/60 100 10/29/18 08:45 10/29/18 08:45 10/29/18 08:45 10/29/18 08:45 10/29/18 08:45 Oxygen Delivery Method Room Air Weight: 57.178 kg Body Mass Index (BMI) 22.3 Intake and Output for Last 24 Hours 10/27/18 10/28/18 10/29/18 23:59 23:59 23:59 Intake Total 3645.00 / 4235.00 1395.33 / 1395.33 1146 / 1146 Output Total 350 / 950 600 / 600 800 / 800 Balance 3295.00 / 3285.00 795.33 / 795.33 346 / 346 Laboratory Tests Past 24 Hrs 10/29/18 05:10 WBC 4.9 RBC 3.37 L Hgb 9.9 L Hct 32.0 L MCV 95.0 MCH 29.4 MCHC 30.9 L RDW Std Deviation 52.5 H RDW Coeff of Nan 15.2 H Plt Count 170 MPV 9.7 Discharge Diet: No Restrictions Discharge Activity: Return to Normal Activity Weight Bearing Status: Weight bearing as tolerated Call your doctor if your incision/area has: Continuous Slow Oozing, Sudden Increased Bleeding, Increased Pain/ Swelling, Increased Redness, Foul Smelling Discharge, Swelling at the incision site Call your doctor if you observe: Fever of 101 or Higher, Coldness, Increased Pain, Numbness or Tingling, Change in Color Home Medications: Medications to take at Discharge Gabapentin [Neurontin] 300 mg PO QHS 10/27/18 Acetaminophen [Tylenol] 1,000 mg PO Q8 tab 10/29/18 Apixaban [Eliquis] 2.5 mg PO BID 30 Days #60 tab 10/29/18 Ferrous Sulfate 325 mg PO BID 30 Days #60 tab 10/29/18 Oxycodone [Oxyir] 5 mg PO Q4H PRN PRN 5 Days #20 tab 10/29/18 Senna/Docusate Sodium [Senokot-S] 2 tab PO BID 14 Days #30 tab 10/29/18 Following Prescrptions Were Given to Patient: Apixaban [Eliquis] 2.5 mg PO BID 30 Days #60 tab Transmission Status: Received by [facility] Ferrous Sulfate 325 mg PO BID 30 Days #60 tab Transmission Status: Received by [facility] Oxycodone [Oxyir] 5 mg PO Q4H PRN PRN 5 Days #20 tab PRN Reason: Mod-Severe Pain (4-1010) Transmission Status: Received by [facility] Senna/Docusate Sodium [Senokot-S] 2 tab PO BID 14 Days #30 tab Transmission Status: Received by [facility] Primary Care Physician: Care Physician,No Primary [Primary Care Provider] - Please Follow Up With: Adam Veliz DO When: in 2 weeks Disposition: Home with Home Health Minutes spent on discharge:: 40 Patient Condition:: Stable Medical Necessity - Tobacco Use Smoking Status: Former smoker - quit over 20 years ago Tobacco Use: Non-smoker Meaningful Use Info Meaningful Use Diagnoses (Choose all that apply): None applicable Code Visit Inpatient E&M: 29056 Disch Hosp
--- NOTE | 2018-10-29 10:00 | CASEMGMT ---
HAZEL BAI asked to review prices for anticoagulants, HAZEL BAI called [facility] to see if patient qualifies for the RX assist program. Patient will qualify and RX assist application completed and sent to [facility]. HAZEL BAI also [facility] for [facility], as well as outpatient therapy, and provided list to patient and son. Patient and son agreeable to [facility] with [facility]. Referral made and they are able to accept the patient. HAZEL BAI updated patient and son regarding acceptance and use of RX assist program. Patient and son had no further questions at this time.
--- NOTE | 2018-10-29 10:30 | CASEMGMT ---
Social Work Note SW received call from Anay Cat Liaison/[facility] stating she met with pt's son Polo and Polo was provided information on [employer] Application through S and Polo has contact information for [facility] to complete Alien Emergency Application. Sanjana Willett COMPUTATIONAL SCIENTIST, SOLAR TECH
[2018-10-29 14:10] VITALS: BP 92/60; PULSE 108; RESP 16; TEMP 36.8; O2SAT 98
== END 2018-10-29 15:35 | disposition home or self-care (01) | DRG 470 ==
LOC: ED 11:42 → MS3 12:20 → ED 14:22 → MS3 10-28 06:13 → ED 10-28 07:51 → MS3 10-28 07:52
PROVIDERS: Admitting Provider Internal Medicine; Emergency Provider Emergency Medicine; Referring Provider Orthopaedic Surgery; Visit Provider Orthopaedic Surgery
PROC: 0SRS0JA Replacement of Left Hip Joint, Femoral Surface with Synthetic Substitute, Uncemented, Open Approach (ICD-10-PCS; CPT 27125; principal; 2018-10-27 13:40)
DX: S72.042A Displaced fracture of base of neck of left femur, initial encounter for closed fracture (principal); W01.0XXA Fall on same level from slipping, tripping and stumbling without subsequent striking against object, initial encounter; Y92.007 Garden or yard of unspecified non-institutional (private) residence as the place of occurrence of the external cause; Z92.21 Personal history of antineoplastic chemotherapy; Z90.710 Acquired absence of both cervix and uterus; Z90.722 Acquired absence of ovaries, bilateral; Z85.42 Personal history of malignant neoplasm of other parts of uterus; Z85.118 Personal history of other malignant neoplasm of bronchus and lung; Z90.2 Acquired absence of lung [part of]; Z87.891 Personal history of nicotine dependence
CPT/HCPCS: 36415; 71045; 73502; 80048; 80053; 85025; 85027; 86850; 86900; 86901; 88305; 88311; 93005; 97116; 97163; 97166; 97530; 97535; 99285; C1776; J7030; J7120; A4216; J2405

== ENCOUNTER → 2018-11-09 09:11 | Outpatient (CLI) | payer SELFPAY ==
[2018-11-09 08:53] VITALS: BMI 23.3
--- NOTE | 2018-11-09 09:13 | RAD_ITS ---
STUDY: X-RAY - PELVIS AND LEFT HIP REASON FOR EXAM: Female, 68 years old. Postop TECHNIQUE: 2 views of the pelvis and hip. COMPARISON: October 27, 2018 FINDINGS: Bilateral hip prostheses are noted in anatomic alignment and position.. No evidence for acute fracture or subluxation. No lytic destructive changes. RAD/HIP, UNI W/ Pelvis 2-3 Views IMPRESSION: Status post bilateral hip prostheses placement Electronically Signed: Cayetano Cohen MD at 17:05 EDT , Service support ,
== END ==
LOC: HPRAD 09:12
PROVIDERS: Referring Provider Orthopaedic Surgery; Visit Provider Orthopaedic Surgery
DX: S72.002A Fracture of unspecified part of neck of left femur, initial encounter for closed fracture (principal)
CPT/HCPCS: 73502